=== PATIENT | female | born 1995 | race Caucasian/White ===

== ENCOUNTER 2023-01-16 05:42 | Emergency (ER) | payer OTHER ==
[~2023-01-16] VITALS: Ht 160 cm; Wt 48.5 kg
[2023-01-16 05:52] VITALS: BP 153/97; PULSE 116; RESP 19; TEMP 97.8; O2SAT 95
[2023-01-16] MEDS ORDERED: KETOROLAC 30 MG/ML VIAL IM ONE (06:20)
[2023-01-16] MEDS ORDERED: diazePAM 5 MG TAB PO ONE (06:20)
[2023-01-16] MEDS ORDERED: methocarbamoL 500 MG TAB PO ONE (06:20)
[2023-01-16 06:34] LABS: APPEARANCE,URINE CLEAR (CLEAR); BILIRUBIN,URINE NEGATIVE (NEGATIVE); BLOOD, URINE 2+ (NEGATIVE); COLOR,URINE YELLOW (YELLOW); LEUKOCYTE ESTERASE ,URINE NEGATIVE (NEGATIVE); NITRITE, URINE NEGATIVE (NEGATIVE); PROTEIN,URINE NEGATIVE (NEGATIVE); UGLUCOSE NEGATIVE (NEGATIVE); UROBILINOGEN,URINE 0.2 EU/dL (0.2 - 1)
[2023-01-16] MEDS ORDERED: LIDOCAINE 5% 1 EA PATCH TP ONE (06:35)
[2023-01-16 06:46] LABS: BACTERIA,URINE 10-30 (MOD) /HPF (None Seen); SQUAMOUS EPITHELIAL CELL,UR 0-3 (FEW) /LPF (0-3 (FEW)); WBC,URINE 0-5 /HPF (0-5)
[2023-01-16] MEDS ORDERED: HYDROcodone/APAP 7.5/325 MG 1 TAB PO ONE (07:25)
[2023-01-16] MEDS ORDERED: ONDANSETRON 4 MG ODT PO ONE (07:45)
[2023-01-16] MEDS ORDERED: LID5T TP (08:25)
[2023-01-16] MEDS ORDERED: ACET-8905 PO (08:25)
[2023-01-16 08:37] VITALS: BP 122/68; PULSE 89; RESP 19; TEMP 97.8; O2SAT 95
[2023-01-16] MEDS ORDERED: LIDOCAINE 5% 1 EA PATCH TP SCH (09:00)
== END 2023-01-16 08:37 | disposition home or self-care (01) ==
LOC: MED 05:42
DX: G89.29 Other chronic pain (principal); M54.50 Low back pain, unspecified; R30.9 Painful micturition, unspecified; R35.0 Frequency of micturition; Z79.899 Other long term (current) drug therapy
CPT/HCPCS: 81001; 81025; 87086; 96372; 99284; J1885; Q0162